=== PATIENT | male | born 1950 | race Caucasian/White ===

== ENCOUNTER 2023-10-02 05:02 | Day surgery (SDC) | payer OTHER ==
[2023-10-01 10:28] VITALS: BMI 24.0
[2023-10-02] MEDS ORDERED: DEXAMETHASONE SOD PHOSPHATE 4 MG/1 ML VIAL ONE (07:16)
[2023-10-02] MEDS ORDERED: KETOROLAC TROMETHAMINE 30 MG/1 ML VIAL ONE (07:16)
[2023-10-02] MEDS ORDERED: LIDOCAINE HCL/PF 2% SDV 5ML VIAL ONE (07:16)
[2023-10-02] MEDS ORDERED: ONDANSETRON 4 MG/2 ML VIAL ONE (07:16)
[2023-10-02] MEDS ORDERED: ACETAMINOPHEN INJECTION 100 ML IVPB ONE (07:18)
[2023-10-02] MEDS ORDERED: SUCCINYLCHOLINE CHLORIDE 200 MG/10 ML SYRINGE ONE (07:20)
[2023-10-02] MEDS ORDERED: ceFAZolin SODIUM 1 GM VIAL ONE ×2 (07:46→07:56)
[2023-10-02] MEDS ORDERED: GENTAMICIN SO4 80 MG/2 ML VIAL ONE (07:46)
[2023-10-02] MEDS ORDERED: MIDAZOLAM HCL 2 MG/2 ML SINGLE DOSE VIAL ONE (07:47)
[2023-10-02] MEDS: GENTAMICIN SO4 80 MG/2 ML VIAL IVPB ONE (07:47)
[2023-10-02] MEDS ORDERED: PROPOFOL 20 ML ONE (07:47)
[2023-10-02] MEDS: ceFAZolin SODIUM 1 GM VIAL IVPB ONE (07:49)
[2023-10-02] MEDS ORDERED: NOREPINEPHRINE BITARTRATE 4 MG/4 ML ML IV ONE (08:14)
[2023-10-02] MEDS ORDERED: oxyCODONE HCL 5 MG TABLET PO PRN (08:54)
[2023-10-02] MEDS ORDERED: ELECTROLYTE-148 SOLN 1,000 ML IV SCH (09:00)
[2023-10-02] MEDS ORDERED: ONDANSETRON 4 MG/2 ML VIAL IVPUSH PRN (09:26)
[2023-10-02] MEDS ORDERED: LACTATED RINGERS SOLUTION 1,000 ML IV SCH (09:30)
[2023-10-02 11:08] VITALS: BP 136/69; PULSE 55; RESP 19; TEMP 97.9
== END 2023-10-02 11:10 | disposition home or self-care (01) ==
LOC: JASU-SURG 05:02
PROVIDERS: ATTEND Urology
PROC: 0TC68ZZ Extirpation of Matter from Right Ureter, Via Natural or Artificial Opening Endoscopic (ICD-10-PCS; principal; 2023-10-02 07:30)
PROC: 0T768DZ Dilation of Right Ureter with Intraluminal Device, Via Natural or Artificial Opening Endoscopic (ICD-10-PCS; 2023-10-02 07:30)
DX: N20.1 Calculus of ureter (principal)
CPT/HCPCS: 76000-TC-FY; 86850; 86900; 86901; 94760; C1758; C2617; J0131

== ENCOUNTER 2024-02-16 19:02 | Inpatient (IN) | payer OTHER ==
[2024-02-16 19:39] VITALS: BMI 24.5
[2024-02-16 20:29] LABS: HEMATOCRIT 46.6 % (35.4-49); HEMOGLOBIN 15.1 GM/dL (11.7-16.9); MCH 27.2 pg (25.7-33.7); MCHC 32.5 g/dl (32.0-35.9); MEAN CELL VOLUME 83.6 fl (80-96); MEAN PLT VOLUME 8.8 fl (7.5-11.1); PLATELET COUNT 180 10^3/uL (134-434); RBC 5.57 M/mm3 (4.00-5.60)
[2024-02-16 20:37] LABS: INR 1.91 (0.83-1.09); PROTHROMBIN TIME (PATIENT) 21.2 SEC (9.7-13.0)
[2024-02-16 20:39] LABS: ACTIVATED PTT 38.4 SECONDS (25.2-36.5)
[2024-02-16 20:59] LABS: POTASSIUM 3.6 mmol/L (3.5-5.1)
[2024-02-16 21:00] LABS: ANISOCYTOSIS 1+; CALCIUM 9.4 mg/dL (8.5-10.1); MACROCYTOSIS 0; OVALOCYTE 1+
[2024-02-16 21:01] LABS: ALBUMIN 3.3 g/dl (3.4-5.0); BLOOD UREA NITROGEN 25.3 mg/dL (7-18)
[2024-02-16 21:04] LABS: CREATININE 1.2 mg/dL (0.55-1.3)
[2024-02-16 21:06] LABS: BILIRUBIN,TOTAL 1.4 mg/dL (0.2-1); TOT PROT 6.6 g/dl (6.4-8.2)
[2024-02-16 21:09] LABS: N-TERMINAL BNP 4081.8 pg/ml (5-125)
[2024-02-16 22:41] LABS: VENOUS BASE EXCESS -0.6 mmol/L (-2-2); VENOUS O2 SATURATION 76.8 % (70-80); VENOUS PCO2 38.1 mmHg (38-52); VENOUS PH 7.412 (7.310-7.410)
[2024-02-16 22:44] LABS: EPI CELLS 1 /uL (0-25.1); HYALINE CASTS 0 /uL (0-3.1); PH,URINE 5.5 (5.0-8.0); URINE APPEARANCE CLOUDY; URINE BACTERIA >9,000 /uL (0-1359); URINE BILIRUBIN NEGATIVE (NEGATIVE); URINE COLOR DK YELLOW; URINE GLUCOSE (UA) NEGATIVE (NEGATIVE); URINE KETONE TRACE (NEGATIVE); URINE LEUK ESTERASE 2+ (NEGATIVE); URINE NITRITE POSITIVE (NEGATIVE); URINE PROTEIN 3+ (NEGATIVE); URINE WBC 2148 /uL (0-25.8)
[2024-02-16] MEDS ORDERED: VANCOMYCIN 1 GM PREMIX (F) 1 GM/200 ML BAG ONE (22:59)
[2024-02-16] MEDS ORDERED: PIPERACILLIN/TAZOB 4.5 GM 4.5 GM/100 ML BAG IVPB ONE (22:59)
[2024-02-16 23:01] LABS: URINE RBC 568.7 /uL (0-23.9)
[2024-02-16] MEDS: PIPERACILLIN/TAZOB 4.5 GM 4.5 GM in DEXTROSE 5%-WATER 100 ML IVPB ONE (23:07)
[2024-02-17] MEDS: VANCOMYCIN 1,000 MG in DEXTROSE 5%-WATER - 250 ML IVPB ONE (01:06)
[2024-02-17] MEDS ORDERED: oxyCODONE HCL 5 MG TABLET ONE (04:01)
[2024-02-17] MEDS: oxyCODONE HCL 5 MG TABLET PO ONE (04:09)
[2024-02-17] MEDS ORDERED: ACETAMINOPHEN 1000 MG/100 ML BAG IVPB PRN ×2 (05:29→12:58)
[2024-02-17] MEDS ORDERED: PIPERACILLIN/TAZOB 3.375 GM 3.375 GM/50 ML BAG IVPB ONE ×2 (05:41→11:15)
[2024-02-17] MEDS: SODIUM CHLORIDE 1,000 ML IV SCH ×2 (05:47→13:00)
[2024-02-17] MEDS: PIPERACILLIN/TAZOB 3.375 GM 3.375 GM in DEXTROSE 5%-WATER - 50 ML IVPB SCH (05:48)
[2024-02-17 08:24] LABS: HEMATOCRIT 45.7 % (35.4-49); MCH 27.5 pg (25.7-33.7); MCHC 32.7 g/dl (32.0-35.9); MEAN CELL VOLUME 83.9 fl (80-96); MEAN PLT VOLUME 9.8 fl (7.5-11.1); PLATELET COUNT 161 10^3/uL (134-434); RBC 5.45 M/mm3 (4.00-5.60); RDW 15.3 % (11.9-15.9); WHITE BLOOD COUNT 23.5 K/mm3 (4.0-10.0)
[2024-02-17 08:38] LABS: POTASSIUM 3.3 mmol/L (3.5-5.1)
[2024-02-17 08:50] LABS: BILIRUBIN,TOTAL 1.5 mg/dL (0.2-1)
[2024-02-17 08:51] LABS: ALBUMIN 3.3 g/dl (3.4-5.0); TOT PROT 6.4 g/dl (6.4-8.2)
[2024-02-17 08:52] LABS: BLOOD UREA NITROGEN 24.9 mg/dL (7-18); CALCIUM 9.2 mg/dL (8.5-10.1); MAGNESIUM 1.7 mg/dL (1.8-2.4)
[2024-02-17 08:57] LABS: CREATININE 1.1 mg/dL (0.55-1.3)
[2024-02-17 08:58] LABS: PHOSPHOROUS 2.6 mg/dL (2.5-4.9)
[2024-02-17] MEDS ORDERED: ENOXAPARIN NA (PORCINE) 40 MG/0.4 ML DISP.SYRIN SQ SCH (10:00)
[2024-02-17 10:18] LABS: ANISOCYTOSIS 0; HELMET CELLS 0; HOWELL-JOLLY BODIES 0; MACROCYTOSIS 0; OVALOCYTE 0; ROULEAU 0; SICKELED CELLS 0; TARGET CELLS 0; TEAR DROP CELLS 0; TOXIC GRANULATION 0
[2024-02-17] MEDS ORDERED: METOPROLOL TARTRATE 50 MG TABLET (FP) ONE (10:29)
[2024-02-17] MEDS ORDERED: DULoxetine HCL 30 MG CAPSULE.DR PO ONE (10:29)
[2024-02-17] MEDS: MAGNESIUM SULF 50% (8.12 MEQ/2 ML-1 GM VIAL) IVPB ONE (10:30)
[2024-02-17] MEDS ORDERED: POTASSIUM CHLORIDE ORAL LIQUID 20 MEQ/15 ML ONE (10:32)
[2024-02-17] MEDS ORDERED: MAGNESIUM 1GM/D5W - 1 GM/100 ML IVPB IVPB ONE (10:33)
[2024-02-17 10:36] LABS: ERYTHROCYTE SEDIMENTATION RATE 11 mm/hr (0-20)
[2024-02-17] MEDS: NYSTATIN 100,000 UNIT/GM TOPICAL CREAM 15 GM TUBE TP SCH ×2 (10:42→22:11)
[2024-02-17] MEDS: TIMOLOL 0.5% OPHTHALMIC SOL 5 ML BOTTLE OD SCH ×2 (10:43→22:11)
[2024-02-17] MEDS ORDERED: ONDANSETRON 4 MG/2 ML VIAL ONE (10:44)
[2024-02-17] MEDS ORDERED: LIDOCAINE HCL/PF 2% SDV 5ML VIAL ONE (10:44)
[2024-02-17] MEDS ORDERED: DEXAMETHASONE SOD PHOSPHATE 4 MG/1 ML VIAL ONE (10:44)
[2024-02-17] MEDS ORDERED: PROPOFOL 20 ML ONE (10:45)
[2024-02-17] MEDS: METOPROLOL TARTRATE 50 MG TABLET (FP) PO SCH ×2 (11:01→22:10)
[2024-02-17] MEDS: DULoxetine HCL 30 MG CAPSULE.DR PO SCH ×2 (11:01→22:10)
[2024-02-17] MEDS: POTASSIUM CHLORIDE ORAL LIQUID 20 MEQ/15 ML PO ONE ×2 (11:01→20:45)
[2024-02-17] MEDS ORDERED: ACETAMINOPHEN INJECTION 100 ML ONE (12:09)
[2024-02-17] MEDS ORDERED: ONDANSETRON 4 MG/2 ML VIAL IVPUSH PRN (12:50)
[2024-02-17] MEDS ORDERED: LACTATED RINGERS SOLUTION 1,000 ML IV SCH (13:00)
[2024-02-17] MEDS: PIPERACILLIN/TAZOB 3.375 GM 50 ML IVPB SCH (17:12)
[2024-02-17] MEDS: KCL 10 MEQ IVPB 10 MEQ/100 ML INFUS.BAG IVPB SCH (21:06)
[2024-02-17] MEDS ORDERED: LATANOPROST 0.005% OPHTH SOLN 2.5ML BOTTLE OU SCH (22:00)
[2024-02-17] MEDS ORDERED: TAMSULOSIN HCL 0.4 MG CAP PO SCH (22:00)
[2024-02-17] MEDS: TAMSULOSIN HCL 0.4 MG CAP PO SCH (22:10)
[2024-02-17] MEDS: LATANOPROST 0.005% OPHTH SOLN 2.5ML BOTTLE OU SCH (22:11)
[2024-02-18] MEDS: oxyCODONE HCL 5 MG TABLET PO ONE ×2 (00:12→21:57)
[2024-02-18] MEDS: GABAPENTIN 400 MG CAPSULE PO ONE (00:13)
[2024-02-18 02:23] VITALS: RESP 18
[2024-02-18 06:55] LABS: HEMATOCRIT 41.9 % (35.4-49); HEMOGLOBIN 13.5 GM/dL (11.7-16.9); MCH 27.4 pg (25.7-33.7); MCHC 32.2 g/dl (32.0-35.9); MEAN CELL VOLUME 85.2 fl (80-96); MEAN PLT VOLUME 9.5 fl (7.5-11.1); PLATELET COUNT 170 10^3/uL (134-434); RBC 4.92 M/mm3 (4.00-5.60); RDW 15.3 % (11.9-15.9); WHITE BLOOD COUNT 20.8 K/mm3 (4.0-10.0)
[2024-02-18 07:09] LABS: POTASSIUM 4.2 mmol/L (3.5-5.1)
[2024-02-18 07:15] LABS: ALBUMIN 2.7 g/dl (3.4-5.0); BLOOD UREA NITROGEN 22.9 mg/dL (7-18); CALCIUM 8.9 mg/dL (8.5-10.1)
[2024-02-18 07:21] LABS: BILIRUBIN,TOTAL 0.9 mg/dL (0.2-1); TOT PROT 5.8 g/dl (6.4-8.2)
[2024-02-18 08:47] LABS: ANISOCYTOSIS 0; MACROCYTOSIS 0
[2024-02-18] MEDS: oxyCODONE HCL 5 MG TABLET PO PRN (14:04)
[2024-02-18] MEDS: GABAPENTIN 400 MG CAPSULE PO SCH (14:08)
[2024-02-18] MEDS: PIPERACILLIN/TAZOB 4.5 GM 4.5 GM/100 ML BAG IVPB SCH (17:53)
[2024-02-19] MEDS: ACETAMINOPHEN 325 MG TABLET (FP) PO PRN (06:00)
[2024-02-19] MEDS ORDERED: PIPERACILLIN/TAZOB 3.375 GM 3.375 GM in DEXTROSE 5%-WATER - 50 ML IVPB SCH (06:30)
[2024-02-19 07:47] LABS: BASO % 0.5 % (0-2.0); EOS % 3.7 % (0-4.5); HEMATOCRIT 41.2 % (35.4-49); HEMOGLOBIN 13.2 GM/dL (11.7-16.9); LYMPH % 17.5 % (8-40); MCH 27.3 pg (25.7-33.7); MCHC 32.1 g/dl (32.0-35.9); MEAN CELL VOLUME 85.3 fl (80-96); MEAN PLT VOLUME 9.9 fl (7.5-11.1); MONO % 11.7 % (3.8-10.2); NEUT % 66.6 % (42.8-82.8); PLATELET COUNT 165 10^3/uL (134-434); RBC 4.83 M/mm3 (4.00-5.60); RDW 15.2 % (11.9-15.9); WHITE BLOOD COUNT 11.9 K/mm3 (4.0-10.0)
[2024-02-19 08:01] LABS: POTASSIUM 3.7 mmol/L (3.5-5.1)
[2024-02-19 08:09] LABS: ALBUMIN 2.6 g/dl (3.4-5.0); BLOOD UREA NITROGEN 23.4 mg/dL (7-18); CALCIUM 8.5 mg/dL (8.5-10.1); MAGNESIUM 1.8 mg/dL (1.8-2.4)
[2024-02-19 08:12] LABS: CREATININE 0.9 mg/dL (0.55-1.3); PHOSPHOROUS 2.3 mg/dL (2.5-4.9)
[2024-02-19 08:14] LABS: TOT PROT 5.3 g/dl (6.4-8.2)
[2024-02-19 08:17] LABS: BILIRUBIN,TOTAL 0.7 mg/dL (0.2-1)
[2024-02-19] MEDS: NAPH,MB-DB/K PH,MBDB POWDER PACKET PO ONE (13:19)
[2024-02-19] MEDS ORDERED: MEROPENEM-0.9% SODIUM CHLORIDE 1 GM/50 ML BAG IVPB SCH (15:00)
[2024-02-19] MEDS: MEROPENEM-0.9% SODIUM CHLORIDE 1 GM/50 ML BAG IVPB SCH (17:15)
[2024-02-19] MEDS ORDERED: ACETAMINOPHEN 325 MG TABLET (FP) PO PRN (19:42)
[2024-02-19] MEDS: oxyCODONE HCL 5 MG TABLET PO PRN (19:59)
[2024-02-19] MEDS: TAMSULOSIN HCL 0.4 MG CAP PO SCH (21:55)
[2024-02-19] MEDS: GABAPENTIN 400 MG CAPSULE PO SCH (21:55)
[2024-02-19] MEDS: METOPROLOL TARTRATE 50 MG TABLET (FP) PO SCH (21:56)
[2024-02-19] MEDS: DULoxetine HCL 30 MG CAPSULE.DR PO SCH (21:56)
[2024-02-19] MEDS: TIMOLOL 0.5% OPHTHALMIC SOL 5 ML BOTTLE OD SCH (23:37)
[2024-02-19] MEDS: LATANOPROST 0.005% OPHTH SOLN 2.5ML BOTTLE OU SCH (23:37)
[2024-02-19] MEDS: NYSTATIN 100,000 UNIT/GM TOPICAL CREAM 15 GM TUBE TP SCH (23:38)
[2024-02-20] MEDS: MEROPENEM-0.9% SODIUM CHLORIDE 1 GM/50 ML BAG IVPB SCH (01:37)
[2024-02-20 08:39] LABS: POTASSIUM 3.5 mmol/L (3.5-5.1)
[2024-02-20 08:44] LABS: BASO % 0.7 % (0-2.0); EOS % 6.8 % (0-4.5); HEMATOCRIT 41.7 % (35.4-49); HEMOGLOBIN 13.8 GM/dL (11.7-16.9); LYMPH % 23.6 % (8-40); MCHC 33.1 g/dl (32.0-35.9); MEAN CELL VOLUME 84.6 fl (80-96); MEAN PLT VOLUME 9.3 fl (7.5-11.1); MONO % 13.8 % (3.8-10.2); NEUT % 55.1 % (42.8-82.8); PLATELET COUNT 170 10^3/uL (134-434); RBC 4.93 M/mm3 (4.00-5.60); RDW 15.1 % (11.9-15.9); WHITE BLOOD COUNT 10.6 K/mm3 (4.0-10.0)
[2024-02-20 08:45] LABS: ALBUMIN 2.6 g/dl (3.4-5.0); CALCIUM 8.8 mg/dL (8.5-10.1)
[2024-02-20 08:46] LABS: BLOOD UREA NITROGEN 17.6 mg/dL (7-18); MAGNESIUM 1.9 mg/dL (1.8-2.4)
[2024-02-20 08:48] LABS: CREATININE 0.8 mg/dL (0.55-1.3); PHOSPHOROUS 2.8 mg/dL (2.5-4.9)
[2024-02-20 08:49] LABS: BILIRUBIN,TOTAL 0.5 mg/dL (0.2-1); TOT PROT 5.2 g/dl (6.4-8.2)
[2024-02-20] MEDS: oxyCODONE HCL 5 MG TABLET PO PRN (11:47)
[2024-02-21 10:23] LABS: BASO % 0.7 % (0-2.0); EOS % 7.7 % (0-4.5); HEMATOCRIT 43.8 % (35.4-49); HEMOGLOBIN 14.4 GM/dL (11.7-16.9); LYMPH % 21.2 % (8-40); MCH 27.6 pg (25.7-33.7); MCHC 32.8 g/dl (32.0-35.9); MEAN CELL VOLUME 84.4 fl (80-96); MONO % 8.5 % (3.8-10.2); NEUT % 61.9 % (42.8-82.8); PLATELET COUNT 186 10^3/uL (134-434); RDW 15.5 % (11.9-15.9); WHITE BLOOD COUNT 11.1 K/mm3 (4.0-10.0)
[2024-02-21 11:59] LABS: POTASSIUM 3.7 mmol/L (3.5-5.1)
[2024-02-21 12:05] LABS: CALCIUM 8.9 mg/dL (8.5-10.1)
[2024-02-21 12:06] LABS: ALBUMIN 2.8 g/dl (3.4-5.0); BLOOD UREA NITROGEN 15.5 mg/dL (7-18)
[2024-02-21 12:07] LABS: MAGNESIUM 1.9 mg/dL (1.8-2.4)
[2024-02-21 12:08] LABS: BILIRUBIN,TOTAL 0.5 mg/dL (0.2-1)
[2024-02-21 12:09] LABS: CREATININE 0.8 mg/dL (0.55-1.3)
[2024-02-21 12:10] LABS: TOT PROT 5.6 g/dl (6.4-8.2)
[2024-02-22 08:47] LABS: BASO % 0.7 % (0-2.0); EOS % 8.3 % (0-4.5); HEMATOCRIT 40.7 % (35.4-49); HEMOGLOBIN 13.5 GM/dL (11.7-16.9); LYMPH % 24.7 % (8-40); MCH 27.8 pg (25.7-33.7); MCHC 33.2 g/dl (32.0-35.9); MEAN CELL VOLUME 83.8 fl (80-96); MONO % 10.2 % (3.8-10.2); NEUT % 56.1 % (42.8-82.8); PLATELET COUNT 188 10^3/uL (134-434); RBC 4.85 M/mm3 (4.00-5.60); RDW 15.2 % (11.9-15.9); WHITE BLOOD COUNT 11.6 K/mm3 (4.0-10.0)
[2024-02-22 09:24] LABS: CALCIUM 8.9 mg/dL (8.5-10.1)
[2024-02-22 09:25] LABS: ALBUMIN 2.6 g/dl (3.4-5.0); BLOOD UREA NITROGEN 14.4 mg/dL (7-18)
[2024-02-22 09:28] LABS: CREATININE 0.8 mg/dL (0.55-1.3)
[2024-02-22 09:30] LABS: BILIRUBIN,TOTAL 0.5 mg/dL (0.2-1); TOT PROT 5.2 g/dl (6.4-8.2)
[2024-02-22 14:44] VITALS: BP 113/67; PULSE 56; TEMP 97.7
== END 2024-02-22 19:54 | DRG 660 ==
LOC: JER 19:02 → JERBED 02-17 04:36 → J4W 02-17 14:09 → J8W 02-19 19:24
PROVIDERS: ADMIT Internal Medicine; ATTEND Internal Medicine
PROC: BT1DZZZ Fluoroscopy of Right Kidney, Ureter and Bladder (ICD-10-PCS; 2024-02-17)
PROC: 0T768DZ Dilation of Right Ureter with Intraluminal Device, Via Natural or Artificial Opening Endoscopic (ICD-10-PCS; principal; 2024-02-17 11:00)
PROC: 02HV33Z Insertion of Infusion Device into Superior Vena Cava, Percutaneous Approach (ICD-10-PCS; 2024-02-22)
PROC: B518ZZA Fluoroscopy of Superior Vena Cava, Guidance (ICD-10-PCS; 2024-02-22)
DX: N39.0 Urinary tract infection, site not specified (principal); I69.351 Hemiplegia and hemiparesis following cerebral infarction affecting right dominant side; N20.1 Calculus of ureter; B96.20 Unspecified Escherichia coli [E. coli] as the cause of diseases classified elsewhere; E78.00 Pure hypercholesterolemia, unspecified; J44.9 Chronic obstructive pulmonary disease, unspecified; I69.320 Aphasia following cerebral infarction; I48.91 Unspecified atrial fibrillation; M51.369 Other intervertebral disc degeneration, lumbar region without mention of lumbar back pain or lower extremity pain; G62.9 Polyneuropathy, unspecified; W06.XXXA Fall from bed, initial encounter; Y92.9 Unspecified place or not applicable; Y99.9 Unspecified external cause status
CPT/HCPCS: 0241U-QW; 36415; 36569; 70450-TC; 71045-TC-FY; 72125-TC; 72131-TC; 72170-TC-FY; 73110-TC-RT-FY; 73130-TC-RT-FY; 74177-TC; 76000-TC-FY; 80053; 81003; 82803; 83735; 83880; 84100; 84484; 85025; 85610; 85651; 85730; 86140; 87040; 87086; 87186; 93005; 93010; 94760; 97116-GP; 97162-GP; 99285-25; C2617; J0131; Q9967

== ENCOUNTER 2024-03-02 21:16 | Inpatient (IN) | payer OTHER ==
[2024-03-02 21:23] VITALS: BMI 24.4
[2024-03-02 22:17] LABS: BASO % 1.2 % (0-2.0); EOS % 5.5 % (0-4.5); HEMATOCRIT 43.8 % (35.4-49); LYMPH % 24.7 % (8-40); MCH 27.1 pg (25.7-33.7); MCHC 31.9 g/dl (32.0-35.9); MEAN CELL VOLUME 84.7 fl (80-96); MEAN PLT VOLUME 8.8 fl (7.5-11.1); MONO % 9.3 % (3.8-10.2); NEUT % 59.3 % (42.8-82.8); PLATELET COUNT 254 10^3/uL (134-434); RBC 5.17 M/mm3 (4.00-5.60); RDW 15.4 % (11.9-15.9); WHITE BLOOD COUNT 12.3 K/mm3 (4.0-10.0)
[2024-03-02 22:21] LABS: EPI CELLS 3 /uL (0-25.1); HYALINE CASTS 0 /uL (0-3.1); PH,URINE 7.5 (5.0-8.0); URINE APPEARANCE CLOUDY; URINE BACTERIA 2 /uL (0-1359); URINE BILIRUBIN NEGATIVE (NEGATIVE); URINE COLOR RED; URINE GLUCOSE (UA) NEGATIVE (NEGATIVE); URINE KETONE NEGATIVE (NEGATIVE); URINE LEUK ESTERASE 1+ (NEGATIVE); URINE NITRITE NEGATIVE (NEGATIVE); URINE PROTEIN 2+ (NEGATIVE); URINE RBC 17693 /uL (0-23.9); URINE UROBILINOGEN 0.2 mg/dL (0.2-1.0); URINE WBC 56 /uL (0-25.8)
[2024-03-02 22:25] LABS: INR 1.21 (0.83-1.09); PROTHROMBIN TIME (PATIENT) 13.8 SEC (9.7-13.0)
[2024-03-02 22:27] LABS: ACTIVATED PTT 36.3 SECONDS (25.2-36.5)
[2024-03-02 22:47] LABS: POTASSIUM 3.6 mmol/L (3.5-5.1)
[2024-03-02 22:49] LABS: CALCIUM 9.1 mg/dL (8.5-10.1)
[2024-03-02 22:53] LABS: CREATININE 0.8 mg/dL (0.55-1.3)
[2024-03-02 22:55] LABS: BILIRUBIN,TOTAL 0.5 mg/dL (0.2-1)
[2024-03-02] MEDS ORDERED: oxyCODONE HCL 5 MG TABLET ONE (23:57)
[2024-03-02] MEDS: oxyCODONE HCL 5 MG TABLET PO ONE (23:59)
[2024-03-03] MEDS ORDERED: ACETAMINOPHEN 325 MG TABLET (FP) PO PRN (00:22)
[2024-03-03 07:41] LABS: BASO % 1.1 % (0-2.0); EOS % 5.2 % (0-4.5); HEMATOCRIT 46.5 % (35.4-49); HEMOGLOBIN 15.2 GM/dL (11.7-16.9); LYMPH % 29.8 % (8-40); MCH 27.5 pg (25.7-33.7); MCHC 32.7 g/dl (32.0-35.9); MEAN CELL VOLUME 84.2 fl (80-96); MEAN PLT VOLUME 9.2 fl (7.5-11.1); MONO % 8.6 % (3.8-10.2); NEUT % 55.3 % (42.8-82.8); PLATELET COUNT 231 10^3/uL (134-434); RBC 5.52 M/mm3 (4.00-5.60); RDW 15.3 % (11.9-15.9); WHITE BLOOD COUNT 10.8 K/mm3 (4.0-10.0)
[2024-03-03 07:58] LABS: POTASSIUM 3.8 mmol/L (3.5-5.1)
[2024-03-03 08:06] LABS: ALBUMIN 3.1 g/dl (3.4-5.0); CALCIUM 9.4 mg/dL (8.5-10.1); MAGNESIUM 1.8 mg/dL (1.8-2.4)
[2024-03-03 08:09] LABS: BILIRUBIN,TOTAL 0.6 mg/dL (0.2-1); CREATININE 0.8 mg/dL (0.55-1.3); TOT PROT 6.2 g/dl (6.4-8.2)
[2024-03-03 08:10] LABS: PHOSPHOROUS 3.2 mg/dL (2.5-4.9)
[2024-03-03] MEDS: ERTAPENEM SODIUM 1 GM in SODIUM CHLORIDE 50 ML IVPB ONE (08:25)
[2024-03-03] MEDS ORDERED: ERTAPENEM SODIUM 1 GM VIAL ONE (08:49)
[2024-03-03] MEDS ORDERED: SODIUM CHLORIDE 1,000 ML IV SCH (09:00)
[2024-03-03] MEDS: DEXTROSE 5%-NORMAL SALINE 1,000 ML IV SCH (09:30)
[2024-03-03] MEDS: HYDROCHLOROTHIAZIDE 25 MG TABLET (FP) PO SCH (10:00)
[2024-03-03] MEDS ORDERED: NIFEdipine E.R. 30 MG TABLET PO SCH (10:00)
[2024-03-03] MEDS: METOPROLOL TARTRATE 50 MG TABLET (FP) PO SCH (10:00)
[2024-03-03] MEDS: DULoxetine HCL 30 MG CAPSULE.DR PO SCH (10:00)
[2024-03-03] MEDS ORDERED: HYDROCHLOROTHIAZIDE 25 MG TABLET (FP) PO SCH (10:00)
[2024-03-03] MEDS: NIFEdipine E.R. 30 MG TABLET PO SCH (10:00)
[2024-03-03] MEDS: TIMOLOL 0.5% OPHTHALMIC SOL 5 ML BOTTLE OD SCH (10:25)
[2024-03-03] MEDS: TAMSULOSIN HCL 0.4 MG CAP PO SCH (21:57)
[2024-03-03] MEDS: oxyCODONE HCL 5 MG TABLET PO PRN (22:01)
[2024-03-03] MEDS: LATANOPROST 0.005% OPHTH SOLN 2.5ML BOTTLE OU SCH (22:27)
[2024-03-04] MEDS: ceFAZolin SODIUM 1 GM VIAL IVPB ONE
[2024-03-04] MEDS ORDERED: PROPOFOL 20 ML ONE (07:16)
[2024-03-04] MEDS ORDERED: LIDOCAINE HCL/PF 2% SDV 5ML VIAL ONE (07:16)
[2024-03-04] MEDS ORDERED: MIDAZOLAM HCL 2 MG/2 ML SINGLE DOSE VIAL ONE (07:16)
[2024-03-04] MEDS: ERTAPENEM SODIUM 1 GM VIAL IVPB ONE (07:49)
[2024-03-04 07:58] LABS: HEMATOCRIT 42.7 % (35.4-49); HEMOGLOBIN 13.7 GM/dL (11.7-16.9); MCH 27.1 pg (25.7-33.7); MEAN CELL VOLUME 84.7 fl (80-96); MEAN PLT VOLUME 9.2 fl (7.5-11.1); PLATELET COUNT 217 10^3/uL (134-434); RBC 5.04 M/mm3 (4.00-5.60); RDW 14.6 % (11.9-15.9); WHITE BLOOD COUNT 11.4 K/mm3 (4.0-10.0)
[2024-03-04 08:07] LABS: POTASSIUM 3.5 mmol/L (3.5-5.1)
[2024-03-04 08:12] LABS: ALBUMIN 2.8 g/dl (3.4-5.0)
[2024-03-04 08:13] LABS: BLOOD UREA NITROGEN 15.4 mg/dL (7-18)
[2024-03-04 08:15] LABS: CREATININE 0.7 mg/dL (0.55-1.3)
[2024-03-04 08:17] LABS: BILIRUBIN,TOTAL 0.7 mg/dL (0.2-1); TOT PROT 5.7 g/dl (6.4-8.2)
[2024-03-04 08:21] LABS: INR 1.13 (0.83-1.09)
[2024-03-04] MEDS ORDERED: ONDANSETRON 4 MG/2 ML VIAL IVPUSH PRN (08:48)
[2024-03-04] MEDS ORDERED: PROMETHAZINE HCL 25 MG/1 ML VIAL IVPB PRN (08:48)
[2024-03-04] MEDS ORDERED: ACETAMINOPHEN 325 MG TABLET (FP) PO PRN (08:55)
[2024-03-04] MEDS: ERTAPENEM SODIUM 1 GM in SODIUM CHLORIDE 50 ML IVPB ONE ×2 (09:05→09:17)
[2024-03-04] MEDS ORDERED: ACETAMINOPHEN INJECTION 100 ML ONE (09:10)
[2024-03-04] MEDS: ACETAMINOPHEN 1000 MG/100 ML BAG IVPB ONE (09:12)
[2024-03-04] MEDS: LACTATED RINGERS SOLUTION 1,000 ML IV SCH (10:37)
[2024-03-04] MEDS: NIFEdipine E.R. 30 MG TABLET PO SCH (11:01)
[2024-03-04] MEDS: DULoxetine HCL 30 MG CAPSULE.DR PO SCH (11:01)
[2024-03-04] MEDS: HYDROCHLOROTHIAZIDE 25 MG TABLET (FP) PO SCH (11:01)
[2024-03-04] MEDS: METOPROLOL TARTRATE 50 MG TABLET (FP) PO SCH (11:01)
[2024-03-04] MEDS: DEXTROSE 5%-NORMAL SALINE 1,000 ML IV SCH (11:01)
[2024-03-04] MEDS: TIMOLOL 0.5% OPHTHALMIC SOL 5 ML BOTTLE OD SCH (11:07)
[2024-03-04] MEDS: TAMSULOSIN HCL 0.4 MG CAP PO SCH (21:41)
[2024-03-04] MEDS: LATANOPROST 0.005% OPHTH SOLN 2.5ML BOTTLE OU SCH (21:42)
[2024-03-04] MEDS: oxyCODONE HCL 5 MG TABLET PO PRN (21:45)
[2024-03-05 07:13] LABS: BASO % 0.2 % (0-2.0); EOS % 0.1 % (0-4.5); HEMOGLOBIN 13.1 GM/dL (11.7-16.9); LYMPH % 12.2 % (8-40); MCH 27.4 pg (25.7-33.7); MCHC 32.8 g/dl (32.0-35.9); MEAN CELL VOLUME 83.5 fl (80-96); MEAN PLT VOLUME 9.3 fl (7.5-11.1); MONO % 5.4 % (3.8-10.2); NEUT % 82.1 % (42.8-82.8); PLATELET COUNT 208 10^3/uL (134-434); RBC 4.79 M/mm3 (4.00-5.60)
[2024-03-05 07:29] LABS: POTASSIUM 3.5 mmol/L (3.5-5.1)
[2024-03-05 07:32] LABS: CALCIUM 9.1 mg/dL (8.5-10.1)
[2024-03-05 07:33] LABS: BLOOD UREA NITROGEN 19.6 mg/dL (7-18); MAGNESIUM 1.6 mg/dL (1.8-2.4)
[2024-03-05 07:36] LABS: CREATININE 0.7 mg/dL (0.55-1.3); PHOSPHOROUS 2.9 mg/dL (2.5-4.9)
[2024-03-05 07:38] LABS: BILIRUBIN,TOTAL 0.5 mg/dL (0.2-1); TOT PROT 5.7 g/dl (6.4-8.2)
[2024-03-05] MEDS: MAGNESIUM OXIDE 400 MG TABLET (FP) PO ONE (09:52)
[2024-03-05] MEDS: ERTAPENEM SODIUM 1 GM in SODIUM CHLORIDE 50 ML IVPB ONE (10:15)
[2024-03-05 18:33] VITALS: RESP 18
[2024-03-06 07:46] LABS: BASO % 1.2 % (0-2.0); EOS % 1.8 % (0-4.5); HEMATOCRIT 40.7 % (35.4-49); LYMPH % 36.4 % (8-40); MEAN CELL VOLUME 84.4 fl (80-96); MEAN PLT VOLUME 9.6 fl (7.5-11.1); MONO % 8.5 % (3.8-10.2); NEUT % 52.1 % (42.8-82.8); PLATELET COUNT 209 10^3/uL (134-434); RBC 4.82 M/mm3 (4.00-5.60); RDW 14.8 % (11.9-15.9)
[2024-03-06 08:08] VITALS: PULSE 65
[2024-03-06 08:08] LABS: POTASSIUM 3.7 mmol/L (3.5-5.1)
[2024-03-06 08:09] LABS: ALBUMIN 2.8 g/dl (3.4-5.0); BILIRUBIN,TOTAL 0.6 mg/dL (0.2-1); BLOOD UREA NITROGEN 16.6 mg/dL (7-18); MAGNESIUM 1.6 mg/dL (1.8-2.4)
[2024-03-06 08:12] LABS: CREATININE 0.8 mg/dL (0.55-1.3); PHOSPHOROUS 2.9 mg/dL (2.5-4.9)
[2024-03-06 08:13] LABS: TOT PROT 5.5 g/dl (6.4-8.2)
[2024-03-06 09:39] VITALS: BP 92/52; TEMP 98.2
[2024-03-06] MEDS: MAGNESIUM 1GM/D5W - 1 GM/100 ML IVPB IVPB ONE (10:18)
[2024-03-10 21:11] LABS: CA OXALATE MONOHYDR. 75 % (.); SIZE 3x2 mm (.); WEIGHT 22 mg (.)
== END 2024-03-06 13:42 | DRG 660 ==
LOC: JER 21:16 → JERBED 23:07 → J4W 03-03 14:55
PROVIDERS: ADMIT Internal Medicine; ATTEND Internal Medicine
PROC: 0TC68ZZ Extirpation of Matter from Right Ureter, Via Natural or Artificial Opening Endoscopic (ICD-10-PCS; principal; 2024-03-04 07:30)
PROC: 0T768DZ Dilation of Right Ureter with Intraluminal Device, Via Natural or Artificial Opening Endoscopic (ICD-10-PCS; 2024-03-04 07:30)
PROC: 0TP98DZ Removal of Intraluminal Device from Ureter, Via Natural or Artificial Opening Endoscopic (ICD-10-PCS; 2024-03-04 07:30)
DX: N20.1 Calculus of ureter (principal); G81.91 Hemiplegia, unspecified affecting right dominant side; R47.01 Aphasia; I48.91 Unspecified atrial fibrillation; I10 Essential (primary) hypertension; G62.9 Polyneuropathy, unspecified; H54.8 Legal blindness, as defined in USA; J44.9 Chronic obstructive pulmonary disease, unspecified; Z85.46 Personal history of malignant neoplasm of prostate
CPT/HCPCS: 36415; 71045-TC-FY; 76000-TC-FY; 80053; 81003; 82360; 82962; 83735; 84100; 85025; 85027; 85610; 85730; 86850; 86900; 86901; 87086; 88300-TC; 93005; 93010; 93306-TC; 94760; 99285-25; C1758; J0131

== ENCOUNTER 2024-06-12 00:04 | Emergency (ER) | payer OTHER ==
[2024-06-12 00:31] VITALS: BP 118/83; PULSE 78; RESP 16; TEMP 98.8; BMI 23.9
[2024-06-12] MEDS ORDERED: IBUPROFEN 400 MG TABLET (FP) PO ONE (01:35)
[2024-06-12] MEDS: IBUPROFEN 400 MG TABLET (FP) PO ONE (01:42)
== END 2024-06-12 01:53 | disposition home or self-care (01) ==
LOC: JER 00:04
DX: Z04.3 Encounter for examination and observation following other accident (principal)
CPT/HCPCS: 70450-TC; 71045-TC-FY; 72125-TC; 72170-TC-FY; 99284-25